=== PATIENT | male | born 1965 | race Asian ===

== ENCOUNTER 2017-08-23 14:09 | Emergency (ER) | payer OTHER, SELFPAY ==
[2017-08-23] MEDS ORDERED: diphenhydrAMINE HCl 50 MG/ML 1 ML VIAL ONE (14:37)
[2017-08-23 14:39] LABS: #Basophils 0.1 thou/uL (0.0-0.2); #Eosinphils 0.2 thou/uL (0.0-0.7); #Lymphocytes 1.7 thou/uL (1.20-3.40); #Monocytes 0.4 thou/uL (0.11-0.59); #Neutrophils 2.9 thou/uL (1.40-6.50); %Basophils 1.7 % (0.0-1.0); %Eosinophils 4.1 % (0.0-10.0); %Lymphocytes 32.2 % (21.0-51.0); Hematocrit 41.2 % (42.0-52.0); Mean Platelet Volume 8.6 fL (7.4-10.4); White Blood Cell (WBC) Count 5.3 thou/uL (4.8-10.8)
[2017-08-23 14:54] LABS: ALT (SGPT) 22 U/L (8-55); AST (SGOT) 18 U/L (5-34); Alkaline Phosphatase 38 U/L (40-150); Anion Gap 13 mmol/L (10-20); BUN (Urea Nitrogen) 13 mg/dL (8.4-25.7); Bilirubin, Total 0.5 mg/dL (0.2-1.2); Calc. Creatinine Clearance 0 mL/min (70-130); Calcium 9.4 mg/dL (7.8-10.44); Carbon Dioxide 23 mmol/L (22-29); Chloride 106 mmol/L (98-107); Estimated GFR-MDRD Greater than 90; Globulin 2.7 g/dL (2.4-3.5)
--- NOTE | 2017-08-23 16:20 | CT ---
CT OF THE BRAIN WITHOUT CONTRAST: Date: 08/23/17 COMPARISON: 02/28/15. HISTORY: Headache that began this morning and woke the patient up. History of subdural hemorrhage. TECHNIQUE: Multiple contiguous axial images were obtained in a CT of the brain without contrast. FINDINGS: The brain is normal in morphology and attenuation without focal lesions or confluent areas of infarc tion. There is no evidence of hydrocephalus, intracranial hemorrhage, or extra-axial fluid collectio n. There are bur holes in the left calvarium. The paranasal sinuses and mastoid air cells are well aera chris. IMPRESSION: No evidence of acute intracranial abnormality. POS: [facility]
== END 2017-08-23 15:16 | disposition home or self-care (01) ==
LOC: SCSER 14:09
DX: R51 Headache (principal)
CPT/HCPCS: 70450; 80053; 85025; 94760; 96361; 96374; J1200